=== PATIENT | female | born 1995 | race Caucasian/White ===

== ENCOUNTER 2021-02-23 11:11 | Emergency (ER) | payer BC, SELFPAY ==
--- NOTE | ~2021-02-23 | XR_ITS ---
XR foot LT min 3V, XR ankle LT min 3V 02/23/2021 11:36 INDICATION: Twisting injury of the left ankle and foot with pain PROCEDURE: 4 views left foot and 4 views left ankle COMPARISON: No prior studies for comparison. FINDINGS: Fracture, dislocation or subluxation is not identified. The soft tissues appear within norm al limits. No foreign bodies are identified. IMPRESSION: 1: NO ACUTE BONE OR JOINT ABNORMALITY IDENTIFIED. Reviewed, dictated and finalized at location A. IMPRESSION: 1: NO ACUTE BONE OR JOINT ABNORMALITY IDENTIFIED.
[2021-02-23 11:22] VITALS: BP 144/81; PULSE 94; RESP 16; TEMP 36.6; O2SAT 98
--- NOTE | 2021-02-23 12:41 | ED.GENADULT ---
HPI - General Adult General Chief complaint: Extremity Injury, Lower Stated complaint: lt foot/ankle injury Time Seen by Provider: 02/23/21 12:41 Source: patient and RN notes reviewed Mode of arrival: wheelchair Limitations: no limitations History of Present Illness HPI narrative: 25-year-old female presents with complaints of left foot and ankle pain and swelling for 1 day. ?Kathy reports playing volleyball last night at approximately 18:30 and twisted LT ankle. ?Elevation and Tylenol, last today at 08:00 AM without relief. ?Hurts to bear weight. ?No radiation of pain. ?No numbness, tingling, or loss of mobility. ?Exacerbating factor applying weight. ?Denies inability to bear weight. ?Denies discoloration. ?Denies suspect foreign body. ?Denies fever. ?LMP 4 weeks ago. ?The patient reports she has not been diagnosed with COVID-19. The patient reports she received the [employer] COVID-19 vaccine. ?The patient reports she is not waiting for the results of a COVID-19 lab test. ?The patient reports she does not have weakness, fatigue, or myalgia. ?The patient reports she does not have a new or worsening cough or shortness of breath. ?The patient reports she does not have any rhinorrhea, congestion, loss of taste or smell, nausea, vomiting, abdominal pain, sore throat, and diarrhea. ?Denies recent traveling. Denies concerns for COVID-19 or exposures. ?At this time, the patient is not suspected of having COVID-19. Some parts of this dictation were generated by voice recognition software and may contain typographical and/or grammatical inaccuracies. Related Data Allergies Allergy/AdvReac Type Severity Reaction Status Date / Time No Known Allergies Allergy Verified 02/23/21 11:21 Review of Systems Review of Systems: CONSTITUTIONAL: Denies fever, chills, sweats. EYES: Denies visual changes, redness, discharge. ENT: Denies rhinorrhea, congestion, sore throat, otalgia. CARDIOVASCULAR: Denies chest pain, palpitations, edema. RESPIRATORY: Denies dyspnea, wheezing, cough. GASTROINTESTINAL: Denies abdominal pain, nausea, vomiting, diarrhea. SKIN: Denies rash or itching. MUSCULOSKELETAL: Denies acute back pain or myalgia. Complaints of left foot and ankle pain and swelling. NEUROLOGIC: Denies numbness or focal weakness. PSYCHIATRIC: Denies anxiety or depression. All other systems reviewed are negative, except as documented in HPI and below. [facility] Past Medical History Medical History (Updated 02/24/21 @ 00:00 by Seema Carter) Asthma Obese Surgical History Surgical History (Updated 02/23/21 @ 12:56 by TONY Conroy) No significant past surgical history Family History Family History (Updated 02/23/21 @ 12:57 by TONY Conroy) Father Hypertension History of prediabetes Mother History of prediabetes Hypertension Social History Social History (Updated 02/26/21 @ 02:18 by TONY Conroy) Smoking status: Never smoker Tobacco type: cigarettes Second hand tobacco smoke exposure: No Alcohol intake: current Substance use: never Substance use type: does not use Living arrangements: with family Occupation/Education: occupation Gender identity (if verbalized by the patient): Female Comments At time of signature, agree with the nurse past medical, surgical, social, and family history. There is no relevant family history pertinent to the presenting complaint. Exam Narrative: GENERAL: This is a well-nourished, well-developed patient, in no apparent distress. Ambulates with a limp favoring the left lower extremity. HEAD: Normocephalic, atraumatic. EYES: PERRL. Sclera clear/white. Vision is grossly intact. CARDIOVASCULAR: Regular rate and rhythm without murmurs, gallops, or rubs. RESPIRATORY: Clear to auscultation. Breath sounds equal bilaterally. No wheezes, rales, or rhonchi. GASTROINTESTINAL: Abdomen soft, non-tender, nondistended. Bowel sounds are active. No hepato-sple
== END 2021-02-23 13:13 | disposition home or self-care (01) ==
PROVIDERS: Emergency Provider Nurse Practitioner Family
DX: S93.602A Unspecified sprain of left foot, initial encounter (principal); S93.402A Sprain of unspecified ligament of left ankle, initial encounter; X50.9XXA Other and unspecified overexertion or strenuous movements or postures, initial encounter; Y93.68 Activity, volleyball (beach) (court); J45.909 Unspecified asthma, uncomplicated; E66.9 Obesity, unspecified
CPT/HCPCS: 73610; 73630; 99213; G0463